=== PATIENT | male | born 1960 | race Caucasian/White ===

== ENCOUNTER 2017-01-07 09:03 | Emergency (ER) | payer SELFPAY ==
[2017-01-07 09:08] VITALS: BP 152/80; PULSE 85; RESP 19; TEMP 98.1; O2SAT 98
[2017-01-07 10:02] LABS: BASO # 0.1 K/uL (0.0-0.2); BASO % 0.7 % (0.0-2.0); EOS # 0.2 K/uL (0.0-0.7); EOS % 2.9 % (0.0-4.0); HEMOGLOBIN 9.1 g/dL (12.0-18.0); LYMPH # 1.1 K/uL (1.0-4.3); LYMPH % 14.3 % (20.0-40.0); MEAN CELL VOLUME 82.9 fl (80.0-94.0); MEAN CORPUSCULAR HEMOGLOBIN 27.9 pg (27.0-31.0); MEAN CORPUSCULAR HGB CONC 33.6 g/dL (33.0-37.0); MEAN PLATELET VOLUME 8.6 fl (7.2-11.7); MONO # 0.6 K/uL (0.0-0.8); MONO % 7.8 % (0.0-10.0); NEUT # 5.8 K/uL (1.8-7.0); NEUT % 74.3 % (50.0-75.0); NRBC % 0.1 % (0.0-0.0); RBC 3.27 Mil/uL (4.40-5.90); RED CELL DISTRIBUTION WIDTH 14.5 % (11.5-14.5); WHITE BLOOD COUNT 7.7 K/uL (4.8-10.8)
[2017-01-07 10:08] LABS: ALB/GLOB RATIO 1.6 (1.0-2.1); ALBUMIN 3.9 g/dL (3.5-5.0); ALT/SGPT 33 U/L (21-72); AST/SGOT 21 U/L (17-59); BLOOD UREA NITROGEN 14 mg/dl (9-20); CALCIUM 8.9 mg/dL (8.4-10.2); GFR AFRICAN-AMERICAN > 60; GFR NON-AFRICAN AMERICAN > 60
[2017-01-07 10:11] LABS: PARTIAL THROMBOPLASTIN TIME 30.1 Seconds (25.6-37.1)
[2017-01-07 10:27] LABS: INR 1.2 (0.9-1.2); PROTHROMBIN TIME 13.3 Seconds (9.8-13.1)
--- NOTE | 2017-01-07 10:45 | ED PDOC ---
HPI: General Adult Time Seen by Provider: 01/07/17 09:16 Chief Complaint (Nursing): Dizziness/Lightheaded Chief Complaint (Provider): Generalized weakness History Per: Patient History/Exam Limitations: no limitations Onset/Duration Of Symptoms: Days Current Symptoms Are (Timing): Still Present Additional Complaint(s): 56 y/o male presents to the emergency department with a complaint of mild generalized weakness for past couple of days. Patient states admitted in [facility] due to dizziness and lightheadedness and found to havea a hemoglobin of 6.0 and was transfused with 3 units of blood. Endoscopy and colonoscopy was with no findings. He had black stool then. He went to [facility] Sat and had a Hg of 8.3. Reports he was suppose to fly back soon to [place] but his insurance did not want him to get onto the plane with a hemoglobin of 8.3 and advised to only fly when levels are above 9.0. His doctor told him to go to the ER for recheck. Denies chest pain, numbness, tingling, dizziness, and abdominal pain. No cough. Has very mild weakness compared to previous. No black stool. Urinating with no issues. Past Medical History Reviewed: Historical Data, Nursing Documentation, Vital Signs Vital Signs: Last Vital Signs Temp 98.1 F 01/07/17 09:07 Pulse 85 01/07/17 09:07 Resp 19 01/07/17 09:07 BP 152/80 H 01/07/17 09:07 Pulse Ox 98 01/07/17 10:50 - Medical History PMH: No Chronic Diseases Denies: Chronic Kidney Disease - Surgical History Surgical History: No Surg Hx - Family History Family History: States: Unknown Family Hx - Living Arrangements Living Arrangements: With Family - Social History Current smoker - smoking cessation education provided: No Alcohol: Occasional Drugs: Denies - Allergies Allergies/Adverse Reactions: Allergies Allergy/AdvReac Type Severity Reaction Status Date / Time No Known Allergies Allergy Verified 01/07/17 09:10 Review of Systems ROS Statement: Except As Marked, All Systems Reviewed And Found Negative Constitutional: Positive for: Weakness (Generalized) Cardiovascular: Negative for: Chest Pain Gastrointestinal: Negative for: Abdominal Pain, Melena, Hematochezia, Hematemesis Neurological: Negative for: Numbness (Tingling), Dizziness Physical Exam - Reviewed Nursing Documentation Reviewed: Yes Vital Signs Reviewed: Yes - Physical Exam Appears: Positive for: Non-toxic, No Acute Distress Head Exam: Positive for: ATRAUMATIC, NORMAL INSPECTION, NORMOCEPHALIC Skin: Positive for: Normal Color, Warm, Dry Eye Exam: Positive for: Normal appearance, EOMI, PERRL ENT: Positive for: Normal ENT Inspection Neck: Positive for: Normal, Painless ROM, Supple Cardiovascular/Chest: Positive for: Regular Rate, Rhythm. Negative for: Murmur Respiratory: Positive for: Normal Breath Sounds. Negative for: Accessory Muscle Use, Respiratory Distress Gastrointestinal/Abdominal: Positive for: Normal Exam, Soft. Negative for: Tenderness Back: Positive for: Normal Inspection. Negative for: L CVA Tenderness, R CVA Tenderness Extremity: Positive for: Normal ROM. Negative for: Tenderness, Pedal Edema Neurologic/Psych: Positive for: Alert, Oriented - Laboratory Results Result Diagrams: 01/07/17 09:38 01/07/17 09:38 Interpretation Of Abn Labs: 9.1 hg - ECG O2 Sat by Pulse Oximetry: 98 (RA) Pulse Ox Interpretation: Normal - Progress ED Course And Treament: 1054: Stable. AAOx3. Pain free. No weakness currently. Feels back to baseline. Advised to rest and no alcohol. He will consult with his doctor on further treatment and evaluation. Ambulated with no issues. Medical Decision Making Medical Decision Making: Time: 09:25 Initial impression: Generalized weakness Initial plan: --Type and Screen STAT --IV Insertion --Reevaluation Time: 10:40 --Hemoglobin level is a 9.1 and patient can leave back to his [place] without complications. Scribe Attestation: Documented by Roselyn Benjamin, acting as a scribe for Enzo Duke MD. Provider Scribe Attestation: All medical record entries made by the Scribe were at my direction and personally dictated by me. I have reviewed the chart and agree that the record accurately reflects my personal performance of the history, physical exam, medical decision making, and the department course for this patient. I have also personally directed, reviewed, and agree with the discharge instructions and disposition. Disposition - Clinical Impression Clinical Impression: Anemia - Disposition Referrals: [facility] [Outside] - 01/08/17 Disposition Time: 10:00 Condition: STABLE Additional Instructions: Return if not better in 3 days. Instructions: Anemia (ED) Forms: [facility] ([place])
== END 2017-01-07 11:18 | disposition home or self-care (01) ==
LOC: H.ER 09:03
DX: D64.9 Anemia, unspecified (principal)